=== PATIENT | female | born 1970 | race Caucasian/White ===

== ENCOUNTER → 2020-11-13 | Outpatient (CLI) | payer OTHER ==
[~2020-11-13] MED LIST: CYMBALTA60 MG PO; FOLIC ACID 1 MG1 MG PO; IBUPROFEN800 MG PO; LEVOTHYROXINE50 MCG PO; OMEPRAZOLE20 M2 PO; PERCOCET 7.5-31 EACH PO; STOOL SOFTENER250 MG PO; VITAMIN B-121000 MCG PO; VITAMIN B-650 MG PO; VITAMIN D-40400 UNIT PO; ZOFRAN4 MG PO
== END ==
LOC: MAMO 08-27 09:30
DX: Z12.31 Encounter for screening mammogram for malignant neoplasm of breast (principal); D69.3 Immune thrombocytopenic purpura; Z90.710 Acquired absence of both cervix and uterus
CPT/HCPCS: 77063; 77067

== ENCOUNTER 2021-10-22 12:08 | Emergency (ER) | payer OTHER ==
[2021-10-22 12:53] LABS: HEMOGLOBIN 13.3 gm/dl (12.3-15.3); RED BLOOD COUNT 4.73 M/UL (4.00-5.10)
[2021-10-22 13:31] LABS: BUN/CREATININE RATIO 15 (0-10)
== END 2021-10-22 16:15 | disposition home or self-care (01) ==
LOC: ER1 12:08
PROVIDERS: Family Medicine
DX: R07.89 Other chest pain (principal); R06.02 Shortness of breath; Z90.710 Acquired absence of both cervix and uterus; Z88.8 Allergy status to other drugs, medicaments and biological substances
CPT/HCPCS: 71045; 80053; 82550; 82553; 83874; 84484; 85025; 93005; 99285

== ENCOUNTER → 2021-10-27 | Outpatient (CLI) | payer OTHER | LOC: NM 14:03 | DX: I20.9 Angina pectoris, unspecified (principal); R94.39 Abnormal result of other cardiovascular function study | CPT/HCPCS: 93017 ==

== ENCOUNTER 2022-04-11 13:13 | Emergency (ER) | payer OTHER | END 2022-04-11 14:56 | disposition home or self-care (01) | LOC: ER1 13:13 | DX: M25.511 Pain in right shoulder (principal); Z90.710 Acquired absence of both cervix and uterus | CPT/HCPCS: 73030; 73060; 96372; 99283; J1100 ==